=== PATIENT | female | born 1925 ===

== ENCOUNTER → 2016-08-17 | Outpatient (CLI) | payer MEDICARE, BC ==
[~2016-08-17] VITALS: Ht 162.6 cm; Wt 48.1 kg
[~2016-08-17] MED LIST: ALENDRONATE SOD35 MG ORAL; AMITIZA8 MCG ORAL; DIOVAN80 MG ORAL; OMEPRAZOLE20 M2 ORAL; ZOCOR20 M1 ORAL
--- NOTE | 2016-08-17 15:39 | GI Initial Consult Note ---
Arleen Elkinsh Jeyson N.PElijah 08/17/16 1539: History of Present Illness General Date patient seen: Aug 17, 2016 Time patient seen: 15:22 Reason for Consultation: COLONOSCOPY REVIEW Present Illness HPI 89 year old female s/p colonoscopy at [facility] recently for rectal bleed. Presents today for review of results. IN addition, the patient c/o of constipation without abdominal pain. Home Meds Reported Medications Omeprazole (OMEPRAZOLE) 20 Mg Capsule.dr, 20 MG ORAL DAILY, CAP 08/17/16 Lubiprostone (AMITIZA) 8 Mcg Capsule, 8 MCG ORAL EVERY 12 HOURS, CAP 08/17/16 Alendronate Sodium (ALENDRONATE SODIUM) 35 Mg Tablet, 35 MG ORAL ONCE A WEEK, TAB Take with 6-8 oz water at least 30 minutes before first food; Sit upright for at least 30min after medication administration 08/17/16 Valsartan (DIOVAN) 80 Mg Tab, 160 MG ORAL DAILY, TAB 08/17/16 Simvastatin (ZOCOR) 20 Mg Tablet, 20 MG ORAL BEDTIME, TAB 08/17/16 Med list reviewed/reconciled: Yes Allergies: Coded Allergies: CEPHALEXIN (Unverified Allergy, Severe, 08/17/16) ERYTHROMYCIN BASE (Unverified Allergy, Severe, Itching, 08/17/16) AMOXICILLIN (Unverified Allergy, Unknown, 08/17/16) AMPICILLIN (Unverified Allergy, Unknown, 08/17/16) Patient History Limited by: other History Provided By: Patient PMH Narrative Allergy to 2 unknown medications; coleminsini? ortihomician? PMH elevated cholesterol constipation HTN Osteoporosis PSHx Ulcer Polyp Ear cataract Social History: Denies: alcohol use, drug use, other, smoking Review of Systems All Other Systems: negative except mentioned in HPI Physical Exam T 98.3 BP 130/68 P 58 97 RA HT 5'4 WT 106 Sp02 EP Interpretation: reviewed General Appearance: well appearing, no apparent distress, thin Head: normocephalic EENT: normal ENT inspection Neck: full range of motion, supple Respiratory: normal breath sounds, no respiratory distress Cardiovascular: normal rate Gastrointestinal: normal inspection, non tender, soft, normal bowel sounds Rectal: deferred Neurologic: normal inspection, alert, oriented x3 Psychiatric: normal inspection, judgement/insight normal, memory normal Skin: normal inspection, normal color, no rash, warm/dry Lymphatic: normal inspection, no adenopathy GI: Plan Problems: (1) Colonic polyp (2) Ischemic colitis (3) Constipated Plan colonoscopy reviewed with patient Rx Amitiza 24 mcg RTC x [address] Martinez. JARED MARTINEZ 08/21/16 0758: History of Present Illness Present Illness Home Meds Reported Medications Omeprazole (OMEPRAZOLE) 20 Mg Capsule.dr, 20 MG ORAL DAILY, CAP 08/17/16 Lubiprostone (AMITIZA) 8 Mcg Capsule, 8 MCG ORAL EVERY 12 HOURS, CAP 08/17/16 Alendronate Sodium (ALENDRONATE SODIUM) 35 Mg Tablet, 35 MG ORAL ONCE A WEEK, TAB Take with 6-8 oz water at least 30 minutes before first food; Sit upright for at least 30min after medication administration 08/17/16 Valsartan (DIOVAN) 80 Mg Tab, 160 MG ORAL DAILY, TAB 08/17/16 Simvastatin (ZOCOR) 20 Mg Tablet, 20 MG ORAL BEDTIME, TAB 08/17/16 Allergies: Coded Allergies: CEPHALEXIN (Unverified Allergy, Severe, 08/17/16) ERYTHROMYCIN BASE (Unverified Allergy, Severe, Itching, 08/17/16) AMOXICILLIN (Unverified Allergy, Unknown, 08/17/16) AMPICILLIN (Unverified Allergy, Unknown, 08/17/16) GI: Plan Plan The patient was seen and examined at bedside and all new and available data was reviewed in the patients chart. I agree with the above findings, impression and plan. (Patient seen earlier today. Signature stamp does not reflect patient encounter time.). -Jared ElkinsBanner Jeyson N.PElijah Aug 17, 2016 15:39 JARED MARTINEZ Aug 21, 2016 07:58
[2016-08-17 15:53] VITALS: BP 130/68
== END | disposition home or self-care (01) ==
LOC: PAN 14:46
DX: K63.5 Polyp of colon (principal); K55.9 Vascular disorder of intestine, unspecified; K59.00 Constipation, unspecified; I10 Essential (primary) hypertension; M81.0 Age-related osteoporosis without current pathological fracture
CPT/HCPCS: 99211

== ENCOUNTER 2016-12-22 09:59 | Outpatient (CLI) | payer MEDICARE, BC ==
[2016-12-22 10:15] VITALS: BP 123/82
--- NOTE | 2016-12-22 10:37 | GI Progress Note ---
Assessment/Plan Problems: (1) Diarrhea ICD Codes: R19.7 - Diarrhea, unspecified SNOMED: 24340537 Status: stable Status Narrative Discussed with Dr. Martinez. Assessment/Plan collect stool sample r/o cdiff colitis RTC after stool study result Subjective Subjective diarrhea, after every meal 3-4/day x 1 months has stop taking Amitiza Objective Last 24 Hour Vital Signs Date Time Temp Pulse Resp B/P Pulse Ox O2 Delivery O2 Flow Rate FiO2 12/22/16 10:15 98.2 66 17 123/82 General Appearance: no apparent distress, alert Cardiovascular: normal rate Respiratory/Chest: normal breath sounds, no respiratory distress Abdominal Exam: normal bowel sounds, non tender, soft Extremities: normal range of motion, non-tender, normal inspection Shellie Elkins N.P. Dec 22, 2016 10:37
== END 2016-12-22 10:45 | disposition home or self-care (01) ==
LOC: PAN 09:59
DX: R19.7 Diarrhea, unspecified (principal)
CPT/HCPCS: 99211

== ENCOUNTER 2017-01-18 13:48 | Outpatient (CLI) | payer MEDICARE, BC | END 2017-01-18 14:00 | disposition home or self-care (01) | LOC: PAN 13:48 | DX: R19.7 Diarrhea, unspecified (principal) | CPT/HCPCS: 87324 ==

== ENCOUNTER 2017-01-28 13:26 | Outpatient (CLI) | payer MEDICARE, BC ==
--- NOTE | 2017-01-28 14:26 | GI Progress Note ---
Assessment/Plan Problems: (1) Diarrhea ICD Codes: R19.7 - Diarrhea, unspecified SNOMED: 69017682 (2) Ischemic colitis ICD Codes: K55.9 - Vascular disorder of intestine, unspecified SNOMED: 98637147 Status: stable Status Narrative Seen with Dr. Martinez. Assessment/Plan stool studies >> cdiff negative last colonoscopy x 10 months @ [facility] Rx Citrocel trial RTC PRN The patient was seen and examined at bedside and all new and available data was reviewed in the patients chart. I agree with the above findings, impression and plan. (Patient seen earlier today. Signature stamp does not reflect patient encounter time.). -Jared Martinez MD Subjective Subjective diarrhea >> 4x daily after eating. here to fu stool studies last colonoscopy x 10month at [facility] Objective T 97.3 BP 142/83 P 73 98 RA WT 110.6 General Appearance: no apparent distress, alert, thin Cardiovascular: normal rate Respiratory/Chest: normal breath sounds, no respiratory distress Abdominal Exam: normal bowel sounds, non tender, soft Extremities: normal range of motion Shellie Elkins NCosme Jan 28, 2017 14:26 JARED MARTINEZ Jan 29, 2017 10:38
== END 2017-01-28 14:00 | disposition home or self-care (01) ==
LOC: PAN 13:26
DX: K55.9 Vascular disorder of intestine, unspecified (principal); R19.7 Diarrhea, unspecified
CPT/HCPCS: 99211